=== PATIENT | female | born 1950 | race Caucasian/White ===

== ENCOUNTER → 2016-07-12 | Outpatient (CLI) | payer BC ==
[~2016-07-12] MED LIST: BYSTOLIC PO; CLC100 PO; LRT5 PO
== END | disposition home or self-care (01) ==
LOC: C.PAPS 15:05
PROVIDERS: ATTEND Obstetrics & Gynecology
DX: Z12.4 Encounter for screening for malignant neoplasm of cervix (principal)

== ENCOUNTER → 2016-08-01 | Outpatient (CLI) | payer BC ==
--- NOTE | 2016-08-01 15:16 | MAMMOGRAPHY REPORT ---
BILATERAL DIGITAL DIAGNOSTIC MAMMOGRAM TOMOSYNTHESIS WITH CAD AND TARGETED BILATERAL ULTRASOUND: 07/16 CLINICAL HISTORY: 66-year-old woman presents for short interval follow-up of probably benign 6 mm ci rcumscribed low-density mass in the upper outer quadrant of the left breast. Annual right mammogram . TECHNIQUE: Bilateral CC and MLO 2-D digital and tomosynthesis images were obtained. Current study w as also evaluated with a Computer Aided Detection (CAD) system. COMPARISON: Comparison is made to exams dated: 02/01/2016 ultrasound, 02/01/2016 mammogram, 07/29/19 16 ultrasound, 07/29/2015 mammogram, 07/21/2015 mammogram, and 07/11/2014 mammogram - [facility]. BREAST COMPOSITION: There are scattered areas of fibroglandular density in both breasts. FINDINGS: There is persistence of a low-density circumscribed lobulated 5.3 x 5.2 x 5.6 mm mass in the upper outer middle one third of the left breast. When comparing to prior available exams, this has not significantly changed in size since the 02/01/2016 exam at which time it measured 5.2 x 6.2 mm, and is likely also stable dating back to July 2015. No associated architectural distortion or clustered microcalcification. Further evaluation with ultrasound was performed. Within the right breast, there are a few stable round and punctate microcalcifications with associat ed nodular asymmetry measuring 3 mm in the upper outer posterior breast. There is an increasingly c onspicuous 3.6 mm nodular asymmetry in the lateral, middle one third of the right breast on the CC v iew that persists on the tomosynthesis images (slice 23) for which additional evaluation with ultras ound was performed. No focal area of architectural distortion or new cluster of suspicious microcal cifications are seen. There is minimal vascular calcification in both breasts. Targeted ultrasound was performed in the left upper outer quadrant and in the right lateral breast. In the left 2:00 axis, 5 cm from the nipple, there is a lobulated mixed anechoic and isoechoic cyst ic-appearing mass measuring 4.7 x 1.5 x 4.5 mm. This is thought to correlate with the mammographic mass. A skin BB was placed overlying the sonographic abnormality and repeat left CC and MLO views w ere performed. The additional views demonstrate alignment of the skin BB with the mammographic mass , concerning confirming mammographicsonographic correlation. Although this could represent a compl icated cyst, definitive characterization with tissue sampling is recommended. Ultrasound was also performed in the lateral right breast. There is a small cyst versus focal duct ectasia in the 9:00 right breast, 7 cm from the nipple, measuring 4.3 x 1.9 x 2.6 mm. This may poss ibly correlate with the nodular asymmetry seen mammographically and is benign in appearance. Pendin g pathology results and the left breast, would recommend repeat right diagnostic mammograms and poss ible ultrasound to ensure stability in 6 months. IMPRESSION: ACR BI-RADS CATEGORY 4: SUSPICIOUS, TARGETED ULTRASOUND ACR BI-RADS CATEGORY 4: SUSPICI OUS 1. Ultrasound guided core needle biopsy is recommended for a 6 mm cystic-appearing mass in the 2:00 left breast, 5 cm from the nipple which correlates with a benign-appearing mammographic mass. 2. Pending benign pathology results and the left breast, a short interval follow-up right diagnosti c mammogram and possible repeat ultrasound is recommended to ensure stability of a benign-appearing 3.6 m nodular asymmetry in the lateral right breast in 6 months. These results and recommendations were discussed with the patient at the time of the exam. She tent atively schedule the left breast biopsy prior to leaving our department. Approximately 10% of breast cancers are not detected with mammography. A negative mammographic repor t should not delay biopsy if a clinically suggestive mass is present. Yessenia Bo M.D. ay/:08/01/2016 14:21:14 Sampler Pickup: [place], [facility] letter sent: Abnormal 4/5 BI-RADS Code: ACR BI-RADS Category 4: Suspicious Ultrasound BI-RADS: ACR BI-RADS Category 4: Suspic ious
== END | disposition home or self-care (01) ==
LOC: C.MAMM 08:30
PROVIDERS: ATTEND Obstetrics & Gynecology
DX: Z09 Encounter for follow-up examination after completed treatment for conditions other than malignant neoplasm (principal); N63 Unspecified lump in breast; N64.89 Other specified disorders of breast

== ENCOUNTER → 2016-08-11 | Outpatient (CLI) | payer BC ==
--- NOTE | 2016-08-11 09:04 | Discharge Instructions ---
Discharge Instructions Procedure Procedure Date: Aug 11, 2016. Reason for visit: Left Mass. Discharge Discharge Date: Aug 11, 2016. Discharge Diagnosis: status post breast biopsy Instructions Activity Recommendations: Additional Limitations (see below) Return to School/Work: no limitations Recommended Home Diet: No Limitations Provider Instructions: ACTIVITY RECOMMENDATIONS: * No lifting, pushing, pulling or exercising the affected side for three days. RETURN TO SCHOOL/WORK: * You may return to work/school after the procedure, but do not perform any strenuous activities for 24 to 48 hours. MEDICATIONS: * Tylenol (two 325 mg) every four to six hours if needed for mild pain (if not allergic to Tylenol). DIET: * Resume previous diet. SPECIAL CARE INSTRUCTIONS: * Keep biopsy site dry for 24 hours. May shower after 24 hours, but do not soak (bathe) incision. * May remove Tegaderm (plastic patch) tomorrow AFTER showering. * Leave the steri-strips on for one week. Allow the steri-strips to fall off by themselves. If not off after one week, you may remove them. You may place a Bandaid crosswise over the strips, if desired. * Apply ice 10 minutes on and 10 minutes off as needed. * Wear a bra at bedtime to sleep more comfortably for 2-3 days. * Your referring physician should have the results after approximately 5 to 7 business days. * Call for unusual bleeding, fever, drainage, etc or if you have any questions call during normal business hours or after hours call Dr Marley, [phone]. FOLLOW UP VISIT: Follow-up with Referring Physician as scheduled. Allergies Coded Allergies: No Known Allergies (Unverified , 11/05/12) Francesca Stock Recommendations: Call your doctor if: * Temperature above 101 degrees * Pain not relieved by pain medicine ordered * There is increased drainage or redness from any incision * You have any unanswered questions or concerns. Your Doctors Instructions noted above were prepared by provider Gaye Marley. Patient Signature Section: Patient Instructions Signature Page Renetta Abraham Patient (or Guardian) Signature/Date: I have read and understand the instructions given to me by my caregivers. Caregiver/RN/Doctor Signature/Date: The above-named patient and/or guardian has received patient instructions on this date. + Original Patient Signature Page (only) stays with chart. Please make copy for patient.
--- NOTE | 2016-08-11 15:06 | MAMMOGRAPHY REPORT ---
THIS REPORT HAS BEEN AMENDED. ULTRASOUND GUIDED BIOPSY LEFT BREAST: 08/11/2016 CLINICAL HISTORY: Left 2:00 breast mass. PATIENT CONSENT: The procedure, risks and benefits were discussed with the patient and informed writ ten consent was obtained. A timeout was performed immediately prior to the procedure. PROCEDURE DESCRIPTION: With ultrasound guidance, aseptic technique, and lidocaine as the local anest hetic (1% lidocaine to anesthetize the skin and 1% lidocaine with epinephrine to anesthetize the kath per tissues), the mass of concern in the left 2:00 breast was sampled 3 times with a 14-gauge Achiev e biopsy needle. The mass became smaller in size and was much less visible with each subsequent pas s. Immediately thereafter, with ultrasound guidance, aseptic technique, and lidocaine as the local anesthetic, a metallic localizer clip was placed in the general region of the biopsy site. Direct pressure was applied to the site immediately post procedure and hemostasis was achieved. Postproced ure unilateral mammograms were performed to confirm placement of the clip in the expected location o f the breast mass. The patient tolerated the procedure without complication. She was given wound ca re instructions. The specimens were sent to pathology for analysis. COMPARISON: Comparison is made to exams dated: 08/01/2016 ultrasound, 08/01/2016 mammogram, 6 ultrasound, 02/01/2016 mammogram, 07/29/2015 ultrasound, and 07/21/2015 mammogram - [facility]. IMPRESSION: ULTRASOUND GUIDED BIOPSY Ultrasound guided core needle biopsy of the left 2:00 breast mass, with clip placement. The patient will receive pathology results from her referring provider. Pending benign pathology results, andre mmend follow-up diagnostic mammograms and possible ultrasound of the right breast in 6 months to ree valuate the right breast asymmetry. Gaye Marley M.D. ah/:08/11/2016 09:21:44 Manager Creative Services: Savana COFFMAN)(Luz), [facility] AMENDMENT: 08/17/2016 Gaye Marley M.D. The pathology from ultrasound guided left breast biopsy was reviewed on 08/17/2016. The pathology amol ws fibrocystic change and usual ductal hyperplasia, which is concordant with the imaging findings. Recommend bilateral diagnostic mammograms and possible ultrasound in 6 months to reevaluate the biop sied left mass and a right breast asymmetry.
--- NOTE | 2016-08-11 15:08 | MAMMOGRAPHY REPORT ---
UNILATERAL LEFT DIGITAL DIAGNOSTIC MAMMOGRAM TOMOSYNTHESIS: 08/11/2016 CLINICAL HISTORY: Status post ultrasound guided biopsy of a left 2:00 breast mass. TECHNIQUE: Breast tomosynthesis in addition to standard 2D mammography was performed. Postprocedur al left CC tomosynthesis images including c views were obtained. Postprocedural left lateral tomosy nthesis images were also obtained, however, an error occurred after the images were taken and the im ages could not be retrieved from the mammography unit and could not be sent to the PACS and viewed. COMPARISON: Comparison is made to exams dated: 08/01/2016 mammogram, 02/01/2016 mammogram, 07/21/2015 mammogram, 07/11/2014 mammogram, and 07/10/2013 mammogram - [facility]. BREAST COMPOSITION: There are scattered areas of fibroglandular density in the left breast. FINDINGS: A new biopsy marker clip is seen in the region of the biopsied mass within the left later al breast middle depth. No significant postbiopsy hematoma is seen. IMPRESSION: POST PROCEDURE IMAGING FOR MARKER PLACEMENT New biopsy marker clip status post ultrasound guided biopsy of the left 2:00 breast mass. Pathology results are pending. Approximately 10% of breast cancers are not detected with mammography. A negative mammographic repor t should not delay biopsy if a clinically suggestive mass is present. Gaye Marley M.D. ah/:08/11/2016 13:50:24 Counter Former: Savana DOMINGUEZ(R)(M), [facility] BI-RADS Code: Post Procedure Imaging For Marker Placement
== END | disposition home or self-care (01) ==
LOC: C.MAMM 08:23
PROVIDERS: ATTEND Obstetrics & Gynecology
DX: N63 Unspecified lump in breast (principal)

== ENCOUNTER → 2017-01-31 | Outpatient (CLI) | payer BC ==
--- NOTE | 2017-01-31 15:21 | MAMMOGRAPHY REPORT ---
BILATERAL DIGITAL DIAGNOSTIC MAMMOGRAM TOMOSYNTHESIS WITH CAD: 01/31/2017 CLINICAL HISTORY: Patient presents for follow-up in both breasts. She underwent an ultrasound guided core biopsy of an indeterminate solid cystic mass in the 2:00 left breast, which yielded benign path ology results. She is also here to follow up a small 3 mm nodular asymmetry in the lateral right janey ast. TECHNIQUE: Bilateral breast tomosynthesis in addition to standard 2D mammography was performed. Curre nt study was also evaluated with a Computer Aided Detection (CAD) system. COMPARISON: Comparison is made to exams dated: 08/11/2016 mammogram, 08/11/2016 ultrasound biopsy, 07/16 ultrasound, 08/01/2016 mammogram, 07/21/2015 mammogram, and 07/11/2014 mammogram - [facility]. BREAST COMPOSITION: The tissue of both breasts is almost entirely fatty. FINDINGS: There is a stable ribbon-shaped biopsy marker clip in the 2:00 left breast, denoting the s ite of recent benign ultrasound guided core biopsy. The previously biopsied mass in the lateral left breast is no longer seen mammographically, concordant with the mass decreasing in size after biopsy. A stable intramammary lymph node in the upper outer posterior left breast. There are 2-3 stable ro und microcalcifications in the right upper outer quadrant, with associated nodularity, which appears similar dating back to at least 2009, therefore likely benign. The 3 mm nodular asymmetry in the lat eral right breast, best seen on the CC view is no longer seen, confirming benignity. No new suspicio us mass, architectural distortion or cluster of microcalcifications is seen bilaterally. IMPRESSION: ACR BI-RADS CATEGORY 2: BENIGN The 3 mm nodular asymmetry in the lateral right breast and the previously biopsied mass in the latera l left breast are no longer seen, confirming benignity, and concordant with the pathology results and the left breast. No new suspicious mammographic finding or evidence of malignancy bilaterally. Rec ommend routine screening in 1 year. These results and recommendations were discussed with the patient at the time of the exam. Approximately 10% of breast cancers are not detected with mammography. A negative mammographic report should not delay biopsy if a clinically suggestive mass is present. Yessenia Bo M.D. ay/:01/31/2017 11:10:39 [place] Former: Savana DOMINGUEZ(R)(M), [facility] letter sent: Normal /2 BI-RADS Code: ACR BI-RADS Category 2: Benign
== END | disposition home or self-care (01) ==
LOC: C.MAMM 08:47
PROVIDERS: ATTEND Obstetrics & Gynecology
DX: Z09 Encounter for follow-up examination after completed treatment for conditions other than malignant neoplasm (principal)

== ENCOUNTER → 2017-04-20 | Outpatient (CLI) | payer BC ==
[2017-04-20 11:14] LABS: BASO % 0.2 %; BASO ABS # 0.02 K/uL (0-0.2); EOS % 1.7 %; EOS ABS # 0.15 K/uL (0-0.5); HEMOGLOBIN 14.4 g/dL (12.0-16.0); IG# 0.01 K/uL (0.00-0.02); LYMPH % 19.8 %; LYMPH ABS # 1.75 K/uL (1.2-3.4); MEAN CELL VOLUME 86.9 fL (80-100); MEAN CORPUSCULAR HEMOGLOBIN 29.1 pg (25-34); MEAN CORPUSCULAR HGB CONC 33.5 g/dl (32-36); MEAN PLATELET VOLUME 10.1 fL (7.4-10.4); MONO % 7.5 %; MONO ABS # 0.66 K/uL (0.11-0.59); NEUT % 70.7 %; NEUT ABS # 6.23 K/uL (1.4-6.5); PLATELET COUNT 317 K/uL (130-400); RED CELL DISTRIBUTION WIDTH CV 13.2 % (11.5-14.5); RED CELL DISTRIBUTION WIDTH SD 41.9 fL (36.4-46.3); WHITE BLOOD COUNT 8.82 K/uL (4.8-10.8)
[2017-04-20 11:31] LABS: ALBUMIN 3.7 gm/dl (3.4-5.0); ALT/SGPT 37 U/L (12-78); AST/SGOT 20 U/L (15-37); BLOOD UREA NITROGEN 22 mg/dl (7-18); CALCIUM 8.9 mg/dl (8.5-10.1); CARBON DIOXIDE 29 mmol/L (21-32); CREATININE 0.75 mg/dl (0.60-1.20); GLUCOSE 105 mg/dl (70-99); POTASSIUM 3.5 mmol/L (3.5-5.1); SODIUM 135 mmol/L (136-145)
[2017-04-20 11:42] LABS: ALKALINE PHOSPHATASE 107 U/L (45-117); CHOLESTEROL 132 mg/dl (0-200); LDL CHOLESTEROL CALCULATED 63 mg/dl; TOTAL PROTEIN 7.4 gm/dl (6.4-8.2)
== END | disposition home or self-care (01) ==
LOC: C.LABBC 08:10
PROVIDERS: ATTEND Internal Medicine
DX: F17.200 Nicotine dependence, unspecified, uncomplicated (principal)

== ENCOUNTER → 2017-07-24 | Outpatient (CLI) | payer BC ==
[~2017-07-24] MED LIST changes: +ATOR-22 PO; +BUSP5TAB59 PO; -BYSTOLIC PO; +CHLO0.1222 PO; +CHOL20007 PO; -CLC100 PO; +INDA1TAB3 PO; -LRT5 PO; +NAPR1TAB9 PO; +NEBI10TA2 PO; +[UNRECOGNIZED DRUG - OTHER] PO
== END | disposition home or self-care (01) ==
LOC: C.PAPS 14:26
PROVIDERS: ATTEND Obstetrics & Gynecology
DX: Z01.419 Encounter for gynecological examination (general) (routine) without abnormal findings (principal)

== ENCOUNTER 2017-08-02 04:58 | Inpatient (IN) | payer BC, OTHER ==
[2017-07-03 13:36] VITALS: BMI 32.0
--- NOTE | 2017-07-03 14:15 | PAT Medication Instructions ---
Service Date Jul 03, 2017. Current Home Medication List Atorvastatin (Lipitor), 20 MG PO QAM Buspirone Hcl (Buspirone Hcl), 1 TAB PO BID Chlorhexidine Gluconate (Mouth (Peridex), 15 ML PO BID Cholecalciferol (Vitamin D3), 4,000 TAB PO QPM Indapamide (Lozol), 1.25 MG PO QAM Naproxen (Aleve), 40 MG PO PRN Nebivolol Hcl (Bystolic), 10 MG PO QAM [Pre Op Michelle], 1 TAB PO QAM Medication Instructions For Your Scheduled Surgery - Hold the following medications 7days prior to surgery per your surgeon's instructions: -Naproxen (Aleve), 40 MG PO PRN - Hold the following medications the morning of surgery: Chlorhexidine Gluconate (Mouth (Peridex), 15 ML PO BID Indapamide (Lozol), 1.25 MG PO QAM [Pre Op Michelle], 1 TAB PO QAM (unless otherwise instructed by the surgeon) - Take the following medications the morning of surgery with a sip of water: Atorvastatin (Lipitor), 20 MG PO QAM Buspirone Hcl (Buspirone Hcl), 1 TAB PO BID Nebivolol Hcl (Bystolic), 10 MG PO QAM - Take the following medications as scheduled the night before surgery: Buspirone Hcl (Buspirone Hcl), 1 TAB PO BID Chlorhexidine Gluconate (Mouth (Peridex), 15 ML PO BID Cholecalciferol (Vitamin D3), 4,000 TAB PO QPM If you have any questions please call us at [phone] or [phone] or [phone]
--- NOTE | 2017-07-03 15:14 | DIAGNOSTIC IMAGING REPORT ---
CHEST 2 VIEWS ROUTINE HISTORY: 67 years-old Female PAT preoperative exam. No acute chest complaints COMPARISON: Chest radiographs 08/23/2005 TECHNIQUE: PA and lateral views of the chest FINDINGS: Cardiomediastinal and hilar silhouettes are within normal limits. There is no pneumothorax, pleural effusion, focal airspace consolidation or overt pulmonary edema. Bones of the chest appear grossly intact. Mild levoscoliosis of the mid to lower thoracic spine. Multilevel degenerative changes of the spine are noted. IMPRESSION: No acute process. The above report was generated using voice recognition software. It may contain grammatical, syntax or spelling errors. Electronically signed by: Justin Olson M.D. 07/03/2017 3:13 PM Dictated Date/Time: 07/03/2017 3:11 PM
[2017-07-03 15:33] LABS: BASO % 0.2 %; BASO ABS # 0.02 K/uL (0-0.2); EOS % 0.9 %; EOS ABS # 0.08 K/uL (0-0.5); HEMOGLOBIN 14.3 g/dL (12.0-16.0); IG# 0.01 K/uL (0.00-0.02); LYMPH % 27.7 %; LYMPH ABS # 2.48 K/uL (1.2-3.4); MEAN CELL VOLUME 84.7 fL (80-100); MEAN CORPUSCULAR HEMOGLOBIN 29.5 pg (25-34); MEAN CORPUSCULAR HGB CONC 34.9 g/dl (32-36); MEAN PLATELET VOLUME 9.7 fL (7.4-10.4); MONO % 7.6 %; MONO ABS # 0.68 K/uL (0.11-0.59); NEUT % 63.5 %; NEUT ABS # 5.69 K/uL (1.4-6.5); PLATELET COUNT 321 K/uL (130-400); RED CELL DISTRIBUTION WIDTH CV 12.9 % (11.5-14.5); RED CELL DISTRIBUTION WIDTH SD 39.7 fL (36.4-46.3); WHITE BLOOD COUNT 8.96 K/uL (4.8-10.8)
[2017-07-03 15:42] LABS: PTT PATIENT 26.4 SECONDS (21.0-31.0)
[2017-07-03 15:48] LABS: ALBUMIN 3.8 gm/dl (3.4-5.0); CALCIUM 9.3 mg/dl (8.5-10.1); CREATININE 0.78 mg/dl (0.60-1.20); POTASSIUM 3.6 mmol/L (3.5-5.1)
[2017-07-04 07:19] LABS: HEMOGLOBIN A1C 5.6 % (4.5-5.6)
--- NOTE | 2017-07-27 14:22 | HISTORY & PHYSICAL EXAMINATION ---
DATE OF ADMISSION: 08/02/2017 CHIEF COMPLAINT: Right knee pain. HISTORY OF PRESENT ILLNESS: Ms. Abraham is a 67-year-old female with right knee pain since 2002. The patient rates her pain an 8/10. She has pain with her daily activities. She has limited standing and walking tolerance. Pain is worse with weightbearing. The patient has had injections, NSAIDS, and previous knee arthroscopy. She has failed conservative treatment and is scheduled for right knee replacement with Dr. Tran. PAST MEDICAL HISTORY: Hypertension, anxiety. She denies heart disease, diabetes or DVT. PAST SURGICAL HISTORY: Right tibial skin grafting, right knee arthroscopy. SOCIAL HISTORY: The patient denies alcohol use. She does smoke 7 cigarettes per day. She lives in a 2-story home. She is and retired. FAMILY HISTORY: Negative for DVT. MEDICATIONS: Bystolic 2 tablets daily, ibuprofen p.r.n. indapamide 1 tablet daily, atorvastatin 20 mg daily, vitamin D 4000 units daily, buspirone 5 mg 2 tablets daily. ALLERGIES: None. REVIEW OF SYSTEMS: See HPI. Ten other systems reviewed, all negative. PHYSICAL EXAMINATION: VITAL SIGNS: Height 5 feet 3 inches, weight 172 pounds, BMI 30. GENERAL: This is a well-developed, well-nourished female who is alert and oriented x3. Mood and affect are appropriate. HEENT: Normocephalic, atraumatic. Mucous membranes are moist and intact. NECK: Supple without lymphadenopathy. HEART: Regular rate and rhythm without murmurs, rubs or gallops. LUNGS: Clear to auscultation without wheezes or rhonchi. ABDOMEN: Soft and nontender. Bowel sounds are equal and active. EXTREMITIES: No ecchymosis, redness or warmth. She has a scar in her anterior tibia. She has moderate effusion. She has varus deformity. Range of motion is from 3-95 degrees with +1 to 2 laxity. She is neurovascularly intact with +5/5 strength. X-RAY EXAMINATION: AP and lateral views show joint space narrowing and osteophyte formation. IMPRESSION: Degenerative joint disease, right knee. PLAN: The patient will be admitted for a right total knee arthroplasty. We will plan on aspirin for DVT prophylaxis. The patient will have [employer] for home physical therapy.
[~2017-08-02] VITALS: Ht 154.9 cm; Wt 78.2 kg
[2017-08-02] VITALS (8 sets, daily range): BP systolic 109–133; BP diastolic 63–80; PULSE 55–69; TEMP 36.5–37; O2SAT 95–99; Ht 154.9 cm; Wt 78.2 kg
[2017-08-02] MEDS ORDERED: CEFAZOLIN 1000MG IV PUSH 7.5 ML IV SCH (06:00)
[2017-08-02] MEDS ORDERED: LACTATED RINGER'S 1000ML 1,000 ML IV SCH (06:00)
[2017-08-02] MEDS ORDERED: ROPIVACAINE 5MG/ML 30 ML 150 MG, BUPIVACAINE 0.5% MPF INJ 30 ML, EpINEphrine HCL INJ 0.... INFIL SCH ×8 (06:00)
[2017-08-02] MEDS ORDERED: GABAPENTIN 300 MG CAP PO SCH (06:00)
[2017-08-02] MEDS ORDERED: ACETAMINOPHEN 500 MG TAB PO SCH (06:00)
[2017-08-02] MEDS ORDERED: DEXAMETHASONE 4 MG TAB PO SCH (06:00)
[2017-08-02] MEDS ORDERED: TRANEXAMIC ACID INJ 1,000 MG x 1 Bag Preop IV SCH ×2 (06:00)
[2017-08-02] MEDS ORDERED: FAMOTIDINE 20 MG TAB PO SCH (06:00)
[2017-08-02] MEDS ORDERED: METOCLOPRAMIDE HCL 10 MG TAB PO SCH (06:00)
[2017-08-02] MEDS ORDERED: TRANEXAMIC ACID INJ 1,000 MG x 1 Bag Intra-Op IV SCH ×2 (06:00)
[2017-08-02] MEDS ORDERED: LACTATED RINGER'S 1000ML 500 ML IV SCH (06:00)
[2017-08-02] MEDS ORDERED: CeleBREX 200 MG CAP PO SCH (06:00)
[2017-08-02] MEDS ORDERED: BUPIVACAINE 0.5 % 5 MG/1 ML PF 10ML VIAL ONE (06:30)
[2017-08-02] MEDS ORDERED: BUPIVACAINE 0.25% 30 ML VIAL ONE (06:30)
[2017-08-02] MEDS ORDERED: BACITRACIN 50000 UNIT VIAL ONE (06:37)
[2017-08-02] MEDS ORDERED: POVIDONE-IODINE OP SOLN 30 ML BTL ONE (06:37)
[2017-08-02] MEDS ORDERED: ORTHO JOINT ANESTHETIC ONE (06:37)
[2017-08-02] MEDS ORDERED: FENTANYL CITRATE INJ 50 MCG/1 ML 2 ML VIAL ONE (06:40)
[2017-08-02] MEDS ORDERED: MIDAZOLAM HCL 1 MG/ML 2ML VIAL ONE (06:41)
[2017-08-02] MEDS ORDERED: EpHEDrine SULFATE INJ 50 MG/ML AMP IV PRN (06:45)
[2017-08-02] MEDS ORDERED: FENTANYL CITRATE INJ 50 MCG/1 ML 2 ML VIAL IV PRN (06:45)
[2017-08-02] MEDS ORDERED: ATROPINE SULFATE 0.1 MG/ML 5ML SYR IV PRN (06:45)
[2017-08-02] MEDS ORDERED: ONDANSETRON INJ 2 MG/ML 2 ML VIAL IV PRN ×2 (06:45→08:45)
--- NOTE | 2017-08-02 06:59 | History & Physical Bridge Note ---
H&P Re-Evaluation Bridge Note: I have examined the patient, reviewed the History & Physical and in the interval since the performance of the History & Physical I have noted the following changes of clinical significance: No changes noted
[2017-08-02] MEDS ORDERED: ONDANSETRON INJ 2 MG/ML 2 ML VIAL ONE (07:26)
[2017-08-02] MEDS ORDERED: DEXAMETHASONE SOD INJ 4 MG/ML VIAL ONE (07:26)
[2017-08-02] MEDS ORDERED: PROPOFOL IV EMULSION 10 MG/ML 20 ML VIAL IV ONE (07:26)
--- NOTE | 2017-08-02 07:59 | [facility] Post Operative Brief Note ---
Immediate Operative Summary Operative Date Aug 02, 2017. Pre-Operative Diagnosis Right knee degenerative joint disease Post-Operative Diagnosis Tricompartmental degenerative joint disease right knee Procedure(s) Performed Right total knee arthroplasty utilizing [employer] journey to patient match total knee arthroplasty size 3 femur to tibia 13 polyethylene [address] Tran Bell Maker Surgeon(s) Adolfo Russo PA-C Estimated Blood Loss 5cc Findings Consistent with Post-Op Diagnosis Specimens A: Right knee bone and tissue Anesthesia Type MAC Spinal Regional Complication(s) none Disposition Disposition: Recovery Room / PACU
--- NOTE | 2017-08-02 08:00 | [facility] Operative Report ---
Operative Report Operative Date Aug 02, 2017. Pre-Operative Diagnosis Right knee degenerative joint disease Post-Operative Diagnosis Tricompartmental degenerative joint disease right knee Procedure(s) Performed Right total knee arthroplasty utilizing [employer] journey to patient match total knee arthroplasty size 3 femur to tibia 13 polyethylene [address] Tran Vice President Research Surgeon(s) Adolfo Russo PA-C Estimated Blood Loss 5cc Findings Severe end-stage tricompartmental degenerative joint disease with varus alignment medial osteophyte subchondral sclerosis cystic changes there is moderate effusion the patient had joint line pain crepitation with a mild pseudo -ligamentous laxity she is failed attempt to conservative injections including physical therapy anti-inflammatories and corticosteroid injections Specimens A: Right knee bone and tissue Anesthesia Type MAC Spinal Regional Complication(s) none Disposition Recovery Room / PACU Indications Patient presents with severe end-stage tricompartmental degenerative joint disease varus alignment subchondral sclerosis cystic changes medial osteophytes patient is been no response to conservative physical therapy anti- inflammatories relative rest activity modification and presents for total knee arthroplasty Description of Procedure After proper prepping and draping of the Right lower extremity anterior midline incision was made over the region of the extensor extensor mechanism after meticulous hemostasis was obtained and maintained in subcutaneous tissues a medial parapatellar incision was made The patella was subluxed lateralward the medial lateral gutter were cleaned from any hypertrophic synovitis and scar tissue of the distal femoral block was placed and the distal femoral osteotomy cut was made subsequently the chamfers anterior and posterior osteotomy cuts were made utilizing the 4-in-1 block the tibia was subsequently subluxed anteriorward medial and ateral meniscal remnants were excised in their entirety remnants of the anterior and posterior cruciate ligaments were excised in their entirety excellent exposure of the proximal tibia was obtained the tibial osteotomy guide was placed on the proximal tibial osteotomy cut was made once again the knee was irrigated with copious amounts of sterile saline solution the patella was subsequently everted lateralward thickened scar tissue around the patella was removed the patella was subsequently cut utilizing a freehand technique and was drilled prepared for final preparation and placement of patella socially flexion-extension gaps were checked and the equal and symmetric trials were placed to the appropriate femoral and tibial trials with poly-spacer being placed for equal flexion and extension gaps and full range of motion including extension to 0 and flexion to 140 the trial components after having been taken to recovery range of motion was subsequently removed meticulous hemostasis was obtained and maintained subsequently a knee block injection of joint cocktail including ropivacaine 0.5% 150 mg. Bupivacaine 0.5 % epinephrine 1-200,030 mL's toradol 30 mg dexamethasone 4 mg ketamine 10 mg clonidine 100 micrograms normal saline solution 30 mg was infiltrated into the soft tissues of the posterior knee medial lateral gutters and periosteal synovium special attention was paid to protect neurovascular structures at all times subsequently trial components having been removed the knee was irrigated with sterile saline solution. debris was removed the proximal tibia was subsequently prepared and was made ready for the placement of the tibial component tibial component was also cemented and tamped into position the femoral component was subsequently placed and cemented in the position the patellar component was subsequently cemented in position because hemostasis once again obtained and maintained wound having been thoroughly irrigated with debridement and debridement lavage was performed as well as a medial parapatellar incision closed with #1 Vicryl in interrupted fashion subcutaneous was closed with #2 Vicryl skin was closed with skin clips. PA-C was necessary for prepping and drapping as well as wound closure of deep fascia Sub cutaneous tissue and skin and was necessary for the case. A sterile compressive dressing was placed patient was taken to recovery in stable condition of report dictated by Marc I attest to the content of the Intraoperative Record and any orders documented therein. Any exceptions are noted below. I attest to the content of the Intraoperative Record and any orders documented therein. Any exceptions are noted below.
[2017-08-02] MEDS ORDERED: SOD PHOSPHATE/SOD BIPHOSPHATE ENEMA 132 ML BTL PR PRN (08:45)
[2017-08-02] MEDS ORDERED: ZOLPIDEM TARTRATE 5 MG TAB PO PRN (08:45)
[2017-08-02] MEDS ORDERED: TRAMADOL HCL 50 MG TAB PO PRN (08:45)
[2017-08-02] MEDS ORDERED: MoRPHine SULFATE 2 MG/ML CARP IV PRN (08:45)
[2017-08-02] MEDS ORDERED: KETOROLAC TROMETHAMINE 15 MG/ML VIAL IV. PRN (08:45)
[2017-08-02] MEDS ORDERED: MAGNESIUM HYDROXIDE SUSP 30 ML UDC PO PRN (08:45)
[2017-08-02] MEDS ORDERED: BISACODYL 10 MG SUPP PR PRN (08:45)
[2017-08-02] MEDS ORDERED: ALUMINUM/MAGNESIUM/SIMETH (MAALOX MAX) 30 ML UDC PO PRN (08:45)
--- NOTE | 2017-08-02 09:07 | DIAGNOSTIC IMAGING REPORT ---
R KNEE 1 OR 2 VIEWS ROUTINE CLINICAL HISTORY: AP/LATERAL IN PACU RIGHT KNEE joint replacement COMPARISON: None. DISCUSSION: A single AP projection is submitted. Anatomic alignment posttotal right knee arthroplasty. Good contact between prosthetic and underlying bone. Surgical drains are in position. Expected soft tissue postoperative change IMPRESSION: Anatomic alignment posttotal right knee arthroplasty. The above report was generated using voice recognition software. It may contain grammatical, syntax or spelling errors. Electronically signed by: Adolfo Dowling M.D. 08/02/2017 9:06 AM Dictated Date/Time: 08/02/2017 9:05 AM
[2017-08-02] MEDS ORDERED: MoRPHine SULFATE 4 MG/ML 1 ML CARP\\VIAL IV PRN (10:00)
--- NOTE | 2017-08-02 10:10 | Anesthesiology Progress Note ---
Anesthesia Post Op Note Date & Time Aug 02, 2017 at 10:10 Vital Signs Pain Intensity: 0 Vital Signs Past 12 Hours Date Time Temp Pulse Resp B/P (MAP) Pulse Ox O2 Delivery O2 Flow Rate FiO2 08/02/17 10:05 36.9 62 16 109/64 96 Nasal Cannula 2 08/02/17 09:55 57 16 100/63 96 Nasal Cannula 2 08/02/17 09:45 59 16 109/62 96 Nasal Cannula 2 08/02/17 09:35 53 16 115/67 96 Nasal Cannula 2 08/02/17 09:25 37.2 53 12 115/69 96 Nasal Cannula 2 08/02/17 09:15 54 12 110/64 96 Nasal Cannula 2 08/02/17 09:05 54 16 106/68 98 Nasal Cannula 2 08/02/17 08:55 57 16 106/69 98 Nasal Cannula 2 08/02/17 08:45 64 16 117/63 98 Nasal Cannula 2 08/02/17 08:35 36.2 61 16 98/64 98 Nasal Cannula 2 08/02/17 05:30 37 59 20 132/76 98 Room Air Notes Mental Status: alert / awake / arousable, participated in evaluation Pt Amnestic to Procedure: Yes Nausea / Vomiting: adequately controlled Pain: adequately controlled Airway Patency, RR, SpO2: stable & adequate BP & HR: stable & adequate Hydration State: stable & adequate Neuraxial Anesthesia: was administered, sensory block is resolving Anesthetic Complications: no major complications apparent
[2017-08-02] MEDS ORDERED: MoRPHine SULFATE 10 MG/ML CARP/VIAL IV PRN (10:15)
[2017-08-02] MEDS: ATORVASTATIN 20 MG TAB PO SCH (11:00)
[2017-08-02] MEDS: D5W AND 1/2NSS + 20MEQ KCL 1,000 ML IV SCH ×2 (11:03→21:11)
[2017-08-02] MEDS: DOCUSATE SODIUM 100 MG CAP PO SCH ×2 (13:29→21:12)
[2017-08-02] MEDS: INDAPAMIDE 1.25 MG TAB PO SCH (13:29)
[2017-08-02] MEDS: MULTIVITAMIN TAB PO SCH (13:29)
[2017-08-02] MEDS: PANTOprazole SOD 40 MG TAB PO SCH (13:29)
[2017-08-02] MEDS: ACETAMINOPHEN 500 MG TAB PO SCH ×2 (13:54→21:13)
[2017-08-02] MEDS: CEFAZOLIN IV 1,000 MG in SYRINGE 0 ML IV SCH ×2 (14:28→22:33)
[2017-08-02] MEDS: OXYCODONE HCL IR 5 MG TAB (IMMEDIATE RELEASE) PO PRN (19:53)
[2017-08-02] MEDS ORDERED: CHOLECALCIFEROL 1000 INTER.UNIT TAB PO SCH (21:00)
[2017-08-02] MEDS ORDERED: SENNA 8.6 MG TAB PO SCH (21:00)
[2017-08-02] MEDS: ASPIRIN 81 MG ECTAB PO SCH (21:12)
[2017-08-03 04:25] VITALS: BP 101/59; PULSE 62; TEMP 36.6; O2SAT 96
[2017-08-03] MEDS: OXYCODONE HCL IR 5 MG TAB (IMMEDIATE RELEASE) PO PRN ×2 (04:26→08:43)
[2017-08-03 06:23] LABS: HEMATOCRIT 33.8 % (37-47); HEMOGLOBIN 11.3 g/dL (12.0-16.0); MEAN CELL VOLUME 85.6 fL (80-100); MEAN CORPUSCULAR HEMOGLOBIN 28.6 pg (25-34); MEAN CORPUSCULAR HGB CONC 33.4 g/dl (32-36); MEAN PLATELET VOLUME 9.8 fL (7.4-10.4); PLATELET COUNT 277 K/uL (130-400); RED CELL DISTRIBUTION WIDTH CV 13.2 % (11.5-14.5); RED CELL DISTRIBUTION WIDTH SD 41.3 fL (36.4-46.3); WHITE BLOOD COUNT 18.47 K/uL (4.8-10.8)
[2017-08-03] MEDS: ACETAMINOPHEN 500 MG TAB PO SCH (06:34)
[2017-08-03] MEDS: D5W AND 1/2NSS + 20MEQ KCL 1,000 ML IV SCH (06:34)
[2017-08-03 06:50] LABS: CALCIUM 8.5 mg/dl (8.5-10.1); CREATININE 0.83 mg/dl (0.60-1.20)
[2017-08-03 07:23] VITALS: BP 99/65; PULSE 49; TEMP 36.4; O2SAT 98
--- NOTE | 2017-08-03 08:07 | Orthopedic Progress Note ---
Orthopedic Progress Note Date of Service Aug 03, 2017. Subjective Post OP Day: 1 Reports: feeling well, Denies: chest pain, SOB, nausea / vomiting, light headedness, calf pain Objective calves soft nontender, N/V intact, dressing C/D/I, A&O x3, toes mobile, hemovac drainage (140/60 CC PER SHIFT) Date Time Temp Pulse Resp B/P (MAP) Pulse Ox O2 Delivery O2 Flow Rate FiO2 08/03/17 07:23 36.4 49 18 99/65 (76) 98 Room Air 08/03/17 07:10 Room Air 08/03/17 04:25 36.6 62 18 101/59 (73) 96 Room Air 08/02/17 23:05 36.5 58 16 109/63 (78) 97 Room Air 08/02/17 19:45 Room Air 08/02/17 19:13 36.5 55 16 130/80 (97) 98 Room Air 08/02/17 16:14 Room Air 08/02/17 15:08 36.8 60 16 124/71 (88) 96 Room Air 08/02/17 13:25 57 18 133/69 (90) 99 Nasal Cannula 2.0 08/02/17 11:28 66 18 112/73 (86) 95 Nasal Cannula 2.0 08/02/17 11:01 36.6 56 18 120/72 (88) 98 Room Air 08/02/17 10:25 Nasal Cannula 2.0 08/02/17 10:25 96 Nasal Cannula 2.0 08/02/17 10:25 36.9 69 18 118/73 (88) 96 Nasal Cannula 2.0 08/02/17 10:05 36.9 62 16 109/64 96 Nasal Cannula 2 08/02/17 09:55 57 16 100/63 96 Nasal Cannula 2 08/02/17 09:45 59 16 109/62 96 Nasal Cannula 2 08/02/17 09:35 53 16 115/67 96 Nasal Cannula 2 08/02/17 09:25 37.2 53 12 115/69 96 Nasal Cannula 2 08/02/17 09:15 54 12 110/64 96 Nasal Cannula 2 08/02/17 09:05 54 16 106/68 98 Nasal Cannula 2 08/02/17 08:55 57 16 106/69 98 Nasal Cannula 2 08/02/17 08:45 64 16 117/63 98 Nasal Cannula 2 08/02/17 08:35 36.2 61 16 98/64 98 Nasal Cannula 2 Laboratory Results 24 Hours: Test 08/03/17 05:41 Hematocrit 33.8 % Hemoglobin 11.3 g/dL Prothromb Time International Ratio 1.0 Prothrombin Time 10.5 SECONDS Assessment & Plan Assessment: POD#1 SP RIGHT TKA Plan: PT/OT DVT PROPH- ASA 81MG BID PAIN MANAGEMENT- MAYI, TYLENOL DC PLANNING- DC HOME TODAY WITH ADVANTAGE.
[2017-08-03] MEDS ORDERED: ACET-24 PO (08:09)
[2017-08-03] MEDS ORDERED: SENN-61 PO (08:09)
[2017-08-03] MEDS ORDERED: ASPI-320 PO (08:09)
[2017-08-03] MEDS ORDERED: ONDA-170 PO (08:09)
[2017-08-03] MEDS ORDERED: CLB200 PO (08:09)
[2017-08-03] MEDS ORDERED: RXC5 PO (08:09)
--- NOTE | 2017-08-03 08:11 | Discharge Instructions ---
Discharge Instructions Date of Service Aug 03, 2017. Admission Reason for Admission: Right Knee Osteoarthritis Discharge Discharge Diagnosis / Problem: SP RIGHT TKA Discharge Goals Goal(s): Decrease discomfort, Improve function, Increase independence Activity Recommendations Activity Limitations: per Instructions/Follow-up section . Instructions / Follow-Up Instructions / Follow-Up ACTIVITY RECOMMENDATIONS: SELF CARE INSTRUCTIONS AFTER TOTAL KNEE REPLACEMENT A. You may need to continue a physical therapy program after discharge from the hospital. There are several options available to you. Your doctor will assist you in selecting the best one for you. 1. An out-patient facility 2 to 3 times a week for therapy or home therapy. 2. Continue working on all exercises taught to you in the hospital. Your goals should be to increase bending of your knee to 90 degrees and beyond and to fully straighten your knee. B. You may progress at your own pace from walking with a walker or crutches to a cane; then to no assistive devices. C. Make walking a part of your daily routine. Be up as much as comfortable with rest periods throughout the day. Rest with leg elevation is very important. Use the ice wrap frequently for the first 3-4 weeks. D. There are no restrictions on activities. You may ride in a car, shop, participate in payroll secretary and all social activities. E. Wear the long elastic stockings (AISHWARYA hose) 20 hours a day for 2 weeks after surgery. They can be removed several times a day for laundering and for a bath. F. You may shower, no tub baths until cleared by your doctor. SPECIAL CARE INSTRUCTIONS: VERY IMPORTANT TO READ AND REVIEW A. There are a few signs you need to watch for after you are home. Call [facility] if you notice any of the followin. Increased severe knee pain. Some pain is expected especially when you exercise. 2. Increased swelling in your leg or knee; pain or swelling of the calf muscle in either lower leg. 3. Any fluid drainage from the incision. 4. Shortness of breath or chest pain. B. Please call [facility] at if you have any concerns or questions about your operation or recovery. The doctor or his nurse will return your call promptly. C. You must take antibiotics before dental work, bladder, bowel or other surgery. Your doctor will provide you with a permanent care to carry describing this precaution. IMPORTANT: * REMEMBER TO TAKE ASPIRIN, 81 MG, TWICE DAILY FOR 4 WEEKS UNLESS OTHERWISE DIRECTED. THIS IS YOUR BLOOD THINNER. * HIGH RISK PATIENTS MAY BE PRESCRIBED A STRONGER BLOOD THINNER. THIS WILL BE PROVIDED AT DISCHARGE. * CALL IF INCREASED PAIN, REDNESS, DRAINAGE OR FEVER GREATER THAT 101. * WEAR AISHWARYA HOSE 20 HOURS PER DAY FOR 2 WEEKS. DERMABOND Prineo- This is a mesh tape dressing that is covered with glue. It should remain in place until the incision is properly healed, usually 10-14 days. This dressing is designed to naturally slough off. You may trim the excess mesh tape as it peels off. Incision may be briefly wet in a shower. Dry immediately by blotting with a clean, dry towel. Do not bath or swim until instructed by your doctor. Do not scratch, rub, or pick at the dressing. Do not apply any topical ointments or lotions until dressing is completely removed and/or instructed by your doctor. There may be a small piece of suture material at one end of your incision. Do not pull or trim this. If it is bothersome or catching on clothing, you may cover it with a band-aid. FOLLOW UP VISIT: If appointment is not already scheduled: Please call [facility] to make a follow-up appointment for 2 weeks after your surgery at . Current Hospital Diet Patient's current hospital diet: Regular Diet Discharge Diet Recommended Diet: Regular Diet Procedures Procedures Performed: Right total knee arthroplasty utilizing [employer] journey to patient match total knee arthroplasty size 3 femur to tibia 13 polyethylene 32oval patella Pending Studies Studies pending at discharge: no Laboratory Results Hemoglobin A1c Test 07/03/17 14:25 Range/Units Estimated Average Glucose 114 mg/dl Hemoglobin A1c 5.6 4.5-5.6 % Medical Emergencies . Who to Call and When: Medical Emergencies: If at any time you feel your situation is an emergency, please call 911 immediately. . Non-Emergent Contact Non-Emergency issues call your: Surgeon . "Provider Documentation" section prepared by Jyoti Cornell. .
[2017-08-03] MEDS: PANTOprazole SOD 40 MG TAB PO SCH (08:38)
[2017-08-03] MEDS: ASPIRIN 81 MG ECTAB PO SCH (08:38)
[2017-08-03] MEDS: ATORVASTATIN 20 MG TAB PO SCH (08:38)
[2017-08-03] MEDS: INDAPAMIDE 1.25 MG TAB PO SCH (08:38)
[2017-08-03] MEDS: DOCUSATE SODIUM 100 MG CAP PO SCH (08:39)
[2017-08-03] MEDS: MULTIVITAMIN TAB PO SCH (08:39)
--- NOTE | 2017-08-03 10:41 | Anesthesiology Progress Note ---
Anesthesia Post Op Note Date & Time Aug 03, 2017 at 10:41 Vital Signs Pain Intensity: 6.0 Vital Signs Past 12 Hours Date Time Temp Pulse Resp B/P (MAP) Pulse Ox O2 Delivery O2 Flow Rate FiO2 08/03/17 07:23 36.4 49 18 99/65 (76) 98 Room Air 08/03/17 07:10 Room Air 08/03/17 04:25 36.6 62 18 101/59 (73) 96 Room Air 08/02/17 23:05 36.5 58 16 109/63 (78) 97 Room Air Notes Mental Status: alert / awake / arousable, participated in evaluation Pt Amnestic to Procedure: Yes Nausea / Vomiting: adequately controlled Pain: adequately controlled Airway Patency, RR, SpO2: stable & adequate BP & HR: stable & adequate Hydration State: stable & adequate Neuraxial Anesthesia: was administered, sensory block resolved Anesthetic Complications: no major complications apparent
[2017-08-03 10:57] VITALS: BP 99/65; PULSE 49; TEMP 36.4; O2SAT 98
--- NOTE | 2017-08-03 11:19 | Discharge Summary ---
Orthopedic Discharge Summary Admission Date/Reason Aug 02, 2017 at 06:43 Right Knee Osteoarthritis. Discharge Date/Disposition Aug 03, 2017 Home with services Diagnosis Principal Diagnosis: right knee osteoarthritis Procedure(s) Performed Right total knee arthroplasty utilizing [facility] journey to patient match total knee arthroplasty size 3 femur to tibia 13 polyethylene 32 oval patella Consultations NONE Medication Reconciliation New Medications: Ondansetron Hcl (Zofran) 8 Mg Tab 8 MG PO Q8 PRN for Nausea, #20 TAB Acetaminophen (Sb Non-Aspirin Extra Stre) 500 Mg Tab 1000 MG PO Q8 for 30 Days, #180 TAB Aspirin (Aspirin EC Low Dose) 81 Mg Ectab 81 MG PO BID for 30 Days, #60 TAB Celecoxib (Celebrex) 200 Mg Cap 200 MG PO BID, #60 CAP Oxycodone HCl (Oxycodone HCl) 5 Mg Tab 5-10 MG PO Q4H PRN for Pain, #60 TAB Senna (Senokot) 8.6 Mg Tab 17.2 MG PO HS for 14 Days, #28 TAB Continued Medications: Atorvastatin (Lipitor) 20 Mg Tab 20 MG PO QAM, TAB Buspirone Hcl (Buspirone Hcl) 5 Mg Tab 1 TAB PO BID for 30 Days, #60 TAB MAY TAKE THIRD DOSE PRN Cholecalciferol (Vitamin D3) 2,000 Unit Tab 4000 TAB PO QPM for 90 Days, TAB 3 Refills Indapamide (Lozol) 1.25 Mg Tab 1.25 MG PO QAM, TAB Nebivolol Hcl (Bystolic) 10 Mg Tab 10 MG PO QAM, TAB [Pre Op Michelle] () 1 TAB PO QAM Discontinued Medications: Naproxen (Aleve) 220 Mg Tab 400 MG PO PRN, TAB Admission Physical Exam As per Admitting History & Physical. Hospital Course Patient was a same day admission after undergoing a successful [facility] TKA. She tolerated the procedure well. Post-operatively, her activity was progressed and well tolerated. Please refer to daily progress notes and PT notes for complete details. After exam on 08/03/17, patient felt to be stable for discharge home with home health PT. Patient will f/u in the office in 2 weeks for further evaluation including x-rays and incision check, sooner if having any issues or concerns. Below are pertinent labs/studies during their hospital stay: Last Vital Signs Documentation Date Time Temp Pulse Resp B/P (MAP) Pulse Ox O2 Delivery O2 Flow Rate FiO2 08/03/17 10:57 36.4 49 18 98 Room Air 08/03/17 07:23 99/65 (76) 08/02/17 13:25 2.0 Last Resulted CBC 08/03/17 05:41 Last Resulted BMP 08/03/17 05:41 Discharge Instructions ACTIVITY RECOMMENDATIONS: SELF CARE INSTRUCTIONS AFTER TOTAL KNEE REPLACEMENT A. You may need to continue a physical therapy program after discharge from the hospital. There are several options available to you. Your doctor will assist you in selecting the best one for you. 1. An out-patient facility 2 to 3 times a week for therapy or home therapy. 2. Continue working on all exercises taught to you in the hospital. Your goals should be to increase bending of your knee to 90 degrees and beyond and to fully straighten your knee. B. You may progress at your own pace from walking with a walker or crutches to a cane; then to no assistive devices. C. Make walking a part of your daily routine. Be up as much as comfortable with rest periods throughout the day. Rest with leg elevation is very important. Use the ice wrap frequently for the first 3-4 weeks. D. There are no restrictions on activities. You may ride in a car, shop, participate in sushi chef and all social activities. E. Wear the long elastic stockings (AISHWARYA hose) 20 hours a day for 2 weeks after surgery. They can be removed several times a day for laundering and for a bath. F. You may shower, no tub baths until cleared by your doctor. SPECIAL CARE INSTRUCTIONS: VERY IMPORTANT TO READ AND REVIEW A. There are a few signs you need to watch for after you are home. Call [facility] [place] if you notice any of the followin. Increased severe knee pain. Some pain is expected especially when you exercise. 2. Increased swelling in your leg or knee; pain or swelling of the calf muscle in either lower leg. 3. Any fluid drainage from the incision. 4. Shortness of breath or chest pain. B. Please call [facility] [place] at if you have any concerns or questions about your operation or recovery. The doctor or his nurse will return your call promptly. C. You must take antibiotics before dental work, bladder, bowel or other surgery. Your doctor will provide you with a permanent care to carry describing this precaution. IMPORTANT: * REMEMBER TO TAKE ASPIRIN, 81 MG, TWICE DAILY FOR 4 WEEKS UNLESS OTHERWISE DIRECTED. THIS IS YOUR BLOOD THINNER. * HIGH RISK PATIENTS MAY BE PRESCRIBED A STRONGER BLOOD THINNER. THIS WILL BE PROVIDED AT DISCHARGE. * CALL IF INCREASED PAIN, REDNESS, DRAINAGE OR FEVER GREATER THAT 101. * WEAR AIHSWARYA HOSE 20 HOURS PER DAY FOR 2 WEEKS. * DERMABOND Prineo- This is a mesh tape dressing that is covered with glue. It should remain in place until the incision is properly healed, usually 10-14 days. This dressing is designed to naturally slough off. You may trim the excess mesh tape as it peels off. Incision may be briefly wet in a shower. Dry immediately by blotting with a clean, dry towel. Do not bath or swim until instructed by your doctor. Do not scratch, rub, or pick at the dressing. Do not apply any topical ointments or lotions until dressing is completely removed and/or instructed by your doctor. There may be a small piece of suture material at one end of your incision. Do not pull or trim this. If it is bothersome or catching on clothing, you may cover it with a band-aid. FOLLOW UP VISIT: If appointment is not already scheduled: Please call [facility] [place] to make a follow-up appointment for 2 weeks after your surgery at .
[2017-08-03] MEDS ORDERED: CeleBREX 200 MG CAP PO SCH (21:00)
== END 2017-08-03 12:18 | disposition home health service (06) | DRG 470 ==
LOC: C.ACU 04:58 → C.3E 06:43 → ENRESERV 09:22
PROVIDERS: ADMIT Orthopaedic Surgery; ATTEND Orthopaedic Surgery
PROC: 0SRC0J9 Replacement of Right Knee Joint with Synthetic Substitute, Cemented, Open Approach (ICD-10-PCS; principal; 2017-08-02 07:00)
DX: M17.11 Unilateral primary osteoarthritis, right knee (principal); I10 Essential (primary) hypertension; F41.9 Anxiety disorder, unspecified; F17.210 Nicotine dependence, cigarettes, uncomplicated; Z79.899 Other long term (current) drug therapy